=== PATIENT | female | born 1990 | race American Indian/Alaskan Native ===

== ENCOUNTER 2019-04-03 18:50 | Inpatient (IN) | payer OTHER ==
--- NOTE | 2019-04-03 19:08 | Emergency Department Report ---
Blank Doc - Documentation Documentation: 28-year-old female that presents with chest pain and sob. Stated was diagnosed with DVT to left leg this morning in [facility]. This initial assessment/diagnostic orders/clinical plan/treatment(s) is/are subject to change based on patient's health status, clinical progression and re- assessment by fellow clinical providers in the ED. Further treatment and workup at subsequent clinical providers discretion. Patient/guardians urged not to elope from the ED as their condition may be serious if not clinically assessed and managed. Initial orders include: 1- Patient sent to MAIN ED for further evaluation and treatment 2- labs 3- CTA 4- UA
[2019-04-03 20:11] LABS: Basophils # (Auto) 0.1 K/mm3 (0.0-0.1); Basophils % (Auto) 1.6 % (0.0-1.8); Eosinophils # (Auto) 0.3 K/mm3 (0.0-0.4); Eosinophils % (Auto) 3.8 % (0.0-4.3); Hematocrit 38.8 % (30.3-42.9); Hemoglobin 12.9 gm/dl (10.1-14.3); Lymphocytes # (Auto) 3.1 K/mm3 (1.2-5.4); Lymphocytes % (Auto) 43.3 % (13.4-35.0); Mean Corpuscular HGB Conc 33 % (30-34); Mean Corpuscular Volume 80 fl (79-97); Monocytes # (Auto) 0.4 K/mm3 (0.0-0.8); Monocytes % (Auto) 6.2 % (0.0-7.3); Platelet Count 416 K/mm3 (140-440); Red Blood Count 4.84 M/mm3 (3.65-5.03); Red Cell Distribution Width 14.5 % (13.2-15.2)
[2019-04-03 20:24] LABS: INR 1.36 (0.87-1.13)
[2019-04-03 20:25] LABS: Partial Thromboplastin Time 36.1 Sec. (24.2-36.6)
[2019-04-03 20:35] LABS: Alanine Aminotransferase 13 units/L (7-56); Albumin 3.9 g/dL (3.9-5); BUN/Creatinine Ratio 14; Blood Urea Nitrogen 7 mg/dL (7-17); Calcium 8.6 mg/dL (8.4-10.2); Hemolysis Index 9
--- NOTE | 2019-04-03 20:53 | XRay Report ---
CHEST 2 VIEWS INDICATION / CLINICAL INFORMATION: Chest Pain. COMPARISON: None available. FINDINGS: SUPPORT DEVICES: None. HEART / MEDIASTINUM: No significant abnormality. LUNGS / PLEURA: No significant pulmonary or pleural abnormality. .No pneumothorax. ADDITIONAL FINDINGS: No significant additional findings. IMPRESSION: 1. No acute findings. Signer Name: Marito Sevilla MD Signed: 04/03/2019 8:49 PM Workstation Name: [id number]
--- NOTE | 2019-04-03 21:13 | Emergency Department Report ---
<MADELYN COVARRUBIAS - Last Filed: 04/04/19 00:39> ED Chest Pain HPI - General Chief Complaint: Chest Pain Stated Complaint: BLOOD CLOT/CHEST PAIN Time Seen by Provider: 04/03/19 19:05 Source: patient Mode of arrival: Ambulatory Limitations: No Limitations - History of Present Illness Initial Comments: Patient 28-year-old -Bul[place] female who presents for chest pain shortness of breath Diagnosed with DVT left calf earlier today started on xarelto at [facility] chest pain shortness of breath started about 1630 today since this facility was Then [facility] Start Facility so She Came Here patient has had 1 dose of Xarelto today there is no leg pain pain no wheezing or stridor no shortness of breath at this time MD Complaint: chest pain Onset/Timin -: Sudden Onset: during rest Pain Location: right chest Pain Radiation: none Severity: moderate Severity scale (0 -10): 5 Quality: sharp Consistency: constant Improves With: nothing Worsens With: exertion, inspiration, palpation, movement Context: other (dx with DVT ) re: nausea. denies: vomting, diaphoresis, dyspnea, sense of impending doom Other Symptoms: denies: cough, fever, syncope, rash, acid taste in mouth, leg swelling, palpitations, burping Treatments Prior to Arrival: none - Related Data On Oral Contraceptives: No Home Medications Medication Instructions Recorded Confirmed Last Taken No Known Home Medications [No 04/03/19 04/03/19 Unknown Reported Home Medications] Allergies Allergy/AdvReac Type Severity Reaction Status Date / Time No Known Allergies Allergy Unverified 04/03/19 19:09 Heart Score - HEART Score History: Slightly suspicious EKG: Normal Age: < 45 Risk factors: No known risk factors Troponin: < normal limit HEART Score: 0 ED Review of Systems Constitutional: denies: chills, fever Eyes: denies: eye pain, eye discharge, vision change ENT: denies: ear pain, throat pain Respiratory: shortness of breath. denies: cough, wheezing Cardiovascular: chest pain. denies: palpitations, dyspnea on exertion, edema, syncope, paroxysmal nocturnal dyspnea Endocrine: no symptoms reported Gastrointestinal: denies: abdominal pain, nausea, diarrhea Genitourinary: denies: urgency, dysuria, discharge Musculoskeletal: denies: back pain, joint swelling, arthralgia Skin: denies: rash, lesions Neurological: denies: headache, weakness, paresthesias Psychiatric: denies: anxiety, depression Hematological/Lymphatic: denies: easy bleeding, easy bruising ED Past Medical Hx - Past Medical History Previous Medical History?: Yes Additional medical history: dx L DVT dx today at [place]. - Surgical History Past Surgical History?: Yes Additional Surgical History: Pins in l arm - Social History Smoking Status: Current Every Day Smoker Substance Use Type: None - Medications Home Medications: Home Medications Medication Instructions Recorded Confirmed Last Taken Type No Known Home Medications [No 04/03/19 04/03/19 Unknown History Reported Home Medications] ED Physical Exam - General Limitations: No Limitations General appearance: alert, in no apparent distress - Head Head exam: Present: atraumatic, normocephalic - Eye Eye exam: Present: normal appearance. Absent: PERRL, EOMI, conjunctival injection, nystagmus Pupils: Absent: normal accommodation - ENT ENT exam: Present: normal orophraynx, mucous membranes moist, TM's normal bilaterally, normal external ear exam - Neck Neck exam: Present: normal inspection, full ROM. Absent: tenderness, lymphadenopathy, thyromegaly - Respiratory Respiratory exam: Present: normal lung sounds bilaterally, chest wall tenderness (right anterior chest ). Absent: respiratory distress, wheezes, rales, rhonchi, stridor, prolonged expiratory - Cardiovascular Cardiovascular Exam: Present: regular rate, normal rhythm, normal heart sounds. Absent: systolic murmur, diastolic murmur, rubs, gallop - GI/Abdominal GI/Abdominal exam: Present: soft, normal bowel sounds. Absent: distended, ten derness, guarding, rebound, rigid, bruit, hernia - Rectal Rectal exam: Present: deferred - Extremities Exam Extremities exam: Present: tenderness (left post calf ), normal capillary refill, calf tenderness. Absent: pedal edema, joint swelling - Expanded Lower Extremity Exam Left Lower Leg exam: Present: full ROM, tenderness, Susie's sign. Absent: swelling, abrasion, laceration, ecchymosis, deformity, crepidus, dislocation, erythema, palpable cord Ankle exam: Present: full ROM. Absent: tenderness Foot/Toe exam: Absent: full ROM, tenderness, swelling Neuro vascular tendon exam: Absent: pulse deficit, abnormal cap refill, motor deficit, sensory deficit, tendon deficit, extremity cold to touch Gait: Positive: observed and normal - Back Exam Back exam: Present: normal inspection, full ROM. Absent: tenderness, CVA ten derness (R), CVA tenderness (L), muscle spasm, rash noted - Neurological Exam Neurological exam: Present: alert, oriented X3, CN II-XII intact, normal gait, motor sensory deficit. Absent: reflexes normal - Psychiatric Psychiatric exam: Present: normal affect, normal mood - Skin Skin exam: Present: warm, dry, intact, normal color. Absent: rash GABE score - Gabe Score Age > 65: (0) No Aspirin use within the Past 7 Days: (0) No 3 or more CAD Risk Factors: (0) No 2 or more Angina events in past 24 hrs: (0) No Known CAD with more than 50% Stenosis: (0) No Elevated Cardiac Markers: (0) No ST Deviation Greater than 0.5mm: (0) No GABE Score: 0 ED Medical Decision Making - Lab Data Result diagrams: 04/03/19 19:53 04/03/19 19:53 Labs 04/03/19 04/03/19 04/03/19 19:53 19:53 19:53 WBC 7.1 RBC 4.84 Hgb 12.9 Hct 38.8 MCV 80 MCH 27 L MCHC 33 RDW 14.5 Plt Count 416 Lymph % (Auto) 43.3 H [place] % (Auto) 6.2 Eos % (Auto) 3.8 Baso % (Auto) 1.6 Lymph # 3.1 [place] # 0.4 Eos # 0.3 Baso # 0.1 Seg Neutrophils % 45.1 Seg Neutrophils # 3.2 PT 16.4 H INR 1.36 H APTT 36.1 Sodium 141 Potassium 3.0 L Chloride 103.3 Carbon Dioxide 26 Anion Gap 15 BUN 7 Creatinine 0.5 L Estimated GFR > 60 BUN/Creatinine Ratio 14 Glucose 99 Calcium 8.6 Total Bilirubin 0.40 AST 18 ALT 13 Alkaline Phosphatase 58 Troponin T < 0.010 Total Protein 7.8 Albumin 3.9 Albumin/Globulin Ratio 1.0 HCG, Qual 04/03/19 04/03/19 19:53 22:03 WBC RBC Hgb Hct MCV MCH MCHC RDW Plt Count Lymph % (Auto) [place] % (Auto) Eos % (Auto) Baso % (Auto) Lymph # [place] # Eos # Baso # Seg Neutrophils % Seg Neutrophils # PT INR APTT Sodium Potassium Chloride Carbon Dioxide Anion Gap BUN Creatinine Estimated GFR BUN/Creatinine Ratio Glucose Calcium Total Bilirubin AST ALT Alkaline Phosphatase Troponin T < 0.010 Total Protein Albumin Albumin/Globulin Ratio HCG, Qual Negative - Radiology Data Radiology results: report reviewed, image reviewed CTA: Pos of PE multiple fill defects both lungs, CXR: No Acute findings. - Medical Decision Making Chest x-ray negative CTA positive for bilateral PE multiple filling defects. Lungs Consulted ED attending plan admit to hospitalist diagnoses bilateral pulmonary embolus, discussed treatment plan with patient patient verbalized agreement and understanding with treatment plan limited to hospitals at this time Call hospitalist Dr. Graves patient had report patient will be admitted to [facility] with diagnoses bilateral PE recommendation P protocol discussed treatment plan with patient patient verbalizes agreement and understand the treatment plan will be admitted to hospitalist at this time hospitalist will see patient awaiting bed assignment patient resting quietly with no acute distress pain is 2/10 at this time management per patient ED Disposition Clinical Impression: Bilateral pulmonary embolism Disposition: OP ADMIT IP TO THIS HOSP Is pt being admited?: Yes Does the pt Need Aspirin: No Condition: Fair <SOFY GARCIA - Last Filed: 04/04/19 14:16> ED Review of Systems ROS: Stated complaint: BLOOD CLOT/CHEST PAIN Other details as noted in HPI ED Course Vital Signs 04/03/19 04/03/19 04/03/19 18:56 21:12 23:00 Temperature 99.3 F 98.6 F Pulse Rate 75 62 68 Respiratory 16 18 18 Rate Blood Pressure 133/90 Blood Pressure 105/73 100/60 [Right] O2 Sat by Pulse 100 100 100 Oximetry 04/04/19 04/04/19 04/04/19 01:18 01:30 01:45 Temperature Pulse Rate 64 64 Respiratory 17 Rate Blood Pressure 100/54 Blood Pressure [Right] O2 Sat by Pulse 100 100 100 Oximetry 04/04/19 04/04/19 04/04/19 02:31 02:45 03:00 Temperature Pulse Rate 63 64 64 Respiratory 12 16 13 Rate Blood Pressure 109/78 109/78 112/80 Blood Pressure [Right] O2 Sat by Pulse 100 100 100 Oximetry 04/04/19 04/04/19 04/04/19 03:31 03:41 03:51 Temperature Pulse Rate 60 60 60 Respiratory 13 14 15 Rate Blood Pressure 112/80 112/80 112/80 Blood Pressure [Right] O2 Sat by Pulse 100 100 100 Oximetry ED Medical Decision Making - Lab Data Result diagrams: 04/04/19 00:57 04/03/19 19:53 Critical Care Time: Yes Critical care time in (mins) excluding proc time.: 45 Critical care attestation.: If time is entered above; I have spent that time in minutes in the direct care of this critically ill patient, excluding procedure time.
--- NOTE | 2019-04-03 23:11 | Cat Scan Report ---
CTA CHEST WITH IV CONTRAST INDICATION / CLINICAL INFORMATION: chest pain w sob. TECHNIQUE: Axial CT images were obtained through the chest after injection of 100 mL Omnipaque 350 IV contrast. 3 plane MIP and/or 3D reconstructions were produced. All CT scans at this location are performed usin g CT dose reduction for YENNYRA by means of automated exposure control. COMPARISON: Chest radiograph same day FINDINGS: PULMONARY ARTERIES: There are multiple subsegmental filling defects seen throughout both lungs compat ible with pulmonary thromboembolus. The main pulmonary artery is nondilated, measuring up to 2.2 cm. There is no CT evidence of right heart strain. THORACIC AORTA: No significant abnormality. HEART: No significant abnormality. CORONARY ARTERIES: No significant calcification. PLEURA: No pleural effusion. No pneumothorax. LYMPH NODES: No significant adenopathy. LUNGS: No acute air space or interstitial disease. ADDITIONAL FINDINGS: None. UPPER ABDOMEN: No acute findings. SKELETAL STRUCTURES: No significant osseous abnormality. IMPRESSION: 1. The examination is positive for pulmonary embolus with multiple subsegmental filling defects seen throughout both lungs. The above findings were discussed with Quintin Hanley NP, at 10:06 PM central time on 04/03/2019. Signer Name: Dominique Coulter MD Signed: 04/03/2019 11:07 PM Workstation Name: [id number]
[2019-04-04] MEDS ORDERED: HEPARIN 10,000 UNITS/10 ML VIAL IV ONE (00:45)
[2019-04-04 01:09] LABS: Hematocrit 36.1 % (30.3-42.9); Hemoglobin 12.1 gm/dl (10.1-14.3)
[2019-04-04 01:20] LABS: INR 1.28 (0.87-1.13)
[2019-04-04 01:21] LABS: Partial Thromboplastin Time 34.9 Sec. (24.2-36.6)
[2019-04-04] MEDS: HEPARIN/ 0.45% NACL DRIP 25,000 UNIT/500 ML BAG IV SCH (01:40)
[2019-04-04] MEDS ORDERED: ONDANSETRON 4 MG/2 ML INJ IV PRN (02:00)
[2019-04-04] MEDS ORDERED: ACETAMINOPHEN 325 MG TAB PO PRN (02:01)
[2019-04-04] MEDS: POTASSIUM CHLORIDE 10 MEQ 10 MEQ/100 ML BAG IV SCH ×2 (02:22→05:29)
[2019-04-04 02:30] LABS: INR 1.43 (0.87-1.13)
[2019-04-04] MEDS ORDERED: POTASSIUM CHLORIDE ER 20 MEQ TAB PO ONE (02:30)
--- NOTE | 2019-04-04 02:38 | History and Physical Report ---
CHIEF COMPLAINT: Chest pain. HISTORY OF PRESENTING ILLNESS: The patient is a 28-year-old female who says she has been having chest pain going on for about 1 week and yesterday, 04/03/2019, the patient developed pain in the left lower extremity and went to [facility] where she was diagnosed with deep vein thrombosis of the left lower extremity and was given a prescription for Xarelto. The patient states she took just one dose of the Xarelto yesterday prior to coming to the hospital, but started having more chest pain and did not feel okay and decided to come to this hospital. There is no history of dizziness. No history of fever, nausea or vomiting. The patient also said she has some symptoms of shortness of breath. The patient had a CT angiogram of the chest done that shows bilateral PE and subsequently presented for admission. PAST MEDICAL HISTORY: Unremarkable. PAST SURGICAL HISTORY: Pertinent for placement of pins in the left arm. FAMILY HISTORY: Noncontributory. SOCIAL HISTORY: The patient smokes cigarette, does not drink alcohol and does not use illicit drug. MEDICATIONS: The patient is on Xarelto. ALLERGIES: There are no known drug allergies. REVIEW OF SYSTEMS: CONSTITUTIONAL: There is no fever, no chills, no diaphoresis. HEENT: There is no headache or sore throat. CARDIOVASCULAR SYSTEM: There is chest pain, but no orthopnea. RESPIRATORY SYSTEM: There is shortness of breath and no cough. GASTROINTESTINAL SYSTEM: There is no nausea, no vomiting, no abdominal pain, diarrhea or constipation. NEUROLOGICAL SYSTEM: There is no numbness, no dizziness, no altered mental status. MUSCULOSKELETAL SYSTEM: There is pain in the left lower extremity with no joint swelling. DERMATOLOGICAL SYSTEM: There is no skin rash or itching. GENITOURINARY SYSTEM: There is no dysuria, hematuria, or flank pain. Rest of system review is normal. PHYSICAL EXAMINATION: GENERAL: At the time of exam, the patient was found to be alert, oriented x 3 and not in acute distress. VITAL SIGNS: Show temperature of 99.3 degrees Fahrenheit, pulse of 75, respirations 16, blood pressure 133/90, O2 sat of 100% on room air. HEENT: Showed pupils to be equal, round, reactive to light and accommodating. Extraocular muscles are intact. NECK: Supple with no JVD or carotid bruit. CARDIOVASCULAR SYSTEM: Showed normal first and second heart sounds with no gallops or murmurs. RESPIRATORY SYSTEM: Showed good air entry on both sides of the lungs with no abnormal breath sounds. GASTROINTESTINAL SYSTEM: Showed abdomen to be full, soft, nontender with no organomegaly or rigidity. NEUROLOGIC: Shows no focal deficit. MUSCULOSKELETAL SYSTEM: Showed no joint swelling or tenderness. DERMATOLOGICAL SYSTEM: Showing no skin rash. GENITOURINARY SYSTEM: Showed no costovertebral angle tenderness. PERTINENT LABORATORY AND IMAGING STUDIES: The patient had chest x-ray done that shows no acute findings. Also, the patient had CT angiogram of the chest done that shows multiple subsegmental filling defects seen throughout both lungs and is positive for pulmonary embolism. Lab results, the patient had CBC done that shows normal white count, normal hemoglobin and normal hematocrit with CBC differential showing elevated lymphocyte count of 43.3%. The patient's coagulation study shows slightly elevated PT of 16.4 and slightly elevated INR of 1.36. The patient's chemistry showed low potassium level of 3.0 with rest of chemistry being unremarkable. Serum test came back negative and serum troponin level was normal. DIAGNOSES: 1. Bilateral pulmonary embolism. 2. Hypokalemia. PLAN OF CARE: 1. The patient will be admitted to telemetry. 2. The patient will continue IV heparin started in the Emergency Room. 3. The patient will have pharmacy to start and dose Coumadin treatment. 4. The patient will have PT, INR done every day for 3 days in the morning. 5. The patient will be on IV morphine 2 mg every 4 hours as needed for pain and will also be on IV Zofran 4 mg every 8 hours for nausea and vomiting. 6. The patient will have potassium chloride 40 mEq by mouth one time and will be on potassium chloride 10 mEq through the IV route mixed in 100 mL of normal saline given over 1 hour x 2 doses. 7. The patient will be on Tylenol 650 mg by mouth every 4 hours for fever and headache. 8. The patient's diet will be regular diet. JOB# [id number] OCN/NTS
[2019-04-04] MEDS ORDERED: SODIUM CHLORIDE 0.9% 1000 ML 1,000 ML ONE (02:47)
[2019-04-04] MEDS: MORPHINE 2 MG/1 ML INJ IV PRN ×3 (02:52→21:45)
[2019-04-04] MEDS ORDERED: SODIUM CHLORIDE 0.9% 1000 ML 1,000 ML IV ONE (02:53)
--- NOTE | 2019-04-04 13:57 | Event Note ---
Date: 04/04/19 Patient admitted earlier this morning for the management of DVT, PE. Patient was seen at [place] the day before yesterday and diagnosed with DVT and sent home with Xarelto. Next day patient become short of breath and presented to the emergency department, CT was done and positive for bilateral PE. Patient only took a dose of Xarelto. Patient was hemodynamically stable, blood pressure is good, no shortness of breath and on dizziness. Patient's currently on heparin.
[2019-04-04] MEDS ORDERED: WARFARIN 7.5 MG TAB PO SCH (17:00)
[2019-04-05] MEDS: HEPARIN/ 0.45% NACL DRIP 25,000 UNIT/500 ML BAG IV SCH ×2 (03:10→23:48)
[2019-04-05 06:03] LABS: INR 1.17 (0.87-1.13)
[2019-04-05] MEDS: MORPHINE 2 MG/1 ML INJ IV PRN ×3 (07:01→20:45)
[2019-04-05] MEDS ORDERED: POTASSIUM CHLORIDE ER 20 MEQ TAB PO NR (10:27)
--- NOTE | 2019-04-05 10:35 | Progress Note ---
Assessment and Plan Assessment and plan: 28 y/o female was presented to ED with complaints of SOB. Patient was diagnosed with DVT at [place] and discharged with xarelto. She took only one dose of xarelto. In the ED CTA showed bilateral PE Bilateral PE - has SOB on admission, now resolved - Earlier this morning was low, but normalized after that - Echo ordered - I put IR consult - patient is on heparin drip - Once cleared by IR, patient can be discharged with xarelto. Patient took only a dose of xarelto and i don't think it is treatment failure. Disposition - Pending IR evaluation History Interval history: Patient was seen and evaluated this morning Patient has no SOB No dizziness Hospitalist Physical - Physical exam Narrative exam: Not in cardiopulmonary distress. The patient is obese. Vital signs as documented. Head exam is unremarkable. No scleral icterus . Neck is without jugular venous distension, thyromegaly, or carotid bruits. Lungs are clear to auscultation. Cardiac exam reveals regular rate and Rhythm. Abdominal exam reveals normal bowel sounds. Extremities are nonedematous and both femoral and pedal pulses are normal. 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 No focal weakness. - Constitutional Vitals: Temp Pulse Resp BP Pulse Ox 98.4 F 68 18 114/56 67 L 04/05/19 07:49 04/05/19 08:58 04/05/19 07:49 04/05/19 07:49 04/05/19 07:49 Results - Labs CBC & Chem 7: 04/04/19 00:57 04/03/19 19:53 Labs: Laboratory Last Values WBC 7.1 K/mm3 (4.5-11.0) 04/03/19 19:53 RBC 4.84 M/mm3 (3.65-5.03) 04/03/19 19:53 Hgb 12.1 gm/dl (10.1-14.3) 04/04/19 00:57 Hct 36.1 % (30.3-42.9) 04/04/19 00:57 MCV 80 fl (79-97) 04/03/19 19:53 MCH 27 pg (28-32) L 04/03/19 19:53 MCHC 33 % (30-34) 04/03/19 19:53 RDW 14.5 % (13.2-15.2) 04/03/19 19:53 Plt Count 361 K/mm3 (140-440) 04/04/19 00:57 Lymph % (Auto) 43.3 % (13.4-35.0) H 04/03/19 19:53 [place] % (Auto) 6.2 % (0.0-7.3) 04/03/19 19:53 Eos % (Auto) 3.8 % (0.0-4.3) 04/03/19 19:53 Baso % (Auto) 1.6 % (0.0-1.8) 04/03/19 19:53 Lymph # 3.1 K/mm3 (1.2-5.4) 04/03/19 19:53 [place] # 0.4 K/mm3 (0.0-0.8) 04/03/19 19:53 Eos # 0.3 K/mm3 (0.0-0.4) 04/03/19 19:53 Baso # 0.1 K/mm3 (0.0-0.1) 04/03/19 19:53 Seg Neutrophils % 45.1 % (40.0-70.0) 04/03/19 19:53 Seg Neutrophils # 3.2 K/mm3 (1.8-7.7) 04/03/19 19:53 PT 14.6 Sec. (12.2-14.9) 04/05/19 04:43 INR 1.17 (0.87-1.13) H 04/05/19 04:43 APTT 34.9 Sec. (24.2-36.6) 04/04/19 00:57 Heparin Anti-Xa Level 0.77 U.I./ml (0.3-0.7) H 04/05/19 08:53 Sodium 141 mmol/L (137-145) 04/03/19 19:53 Potassium 3.0 mmol/L (3.6-5.0) L 04/03/19 19:53 Chloride 103.3 mmol/L (98-107) 04/03/19 19:53 Carbon Dioxide 26 mmol/L (22-30) 04/03/19 19:53 Anion Gap 15 mmol/L 04/03/19 19:53 BUN 7 mg/dL (7-17) 04/03/19 19:53 Creatinine 0.5 mg/dL (0.7-1.2) L 04/03/19 19:53 Estimated GFR > 60 ml/min 04/03/19 19:53 BUN/Creatinine Ratio 14 % 04/03/19 19:53 Glucose 99 mg/dL (65-100) 04/03/19 19:53 Calcium 8.6 mg/dL (8.4-10.2) 04/03/19 19:53 Total Bilirubin 0.40 mg/dL (0.1-1.2) 04/03/19 19:53 AST 18 units/L (5-40) 04/03/19 19:53 ALT 13 units/L (7-56) 04/03/19 19:53 Alkaline Phosphatase 58 units/L (35-129) 04/03/19 19:53 Troponin T < 0.010 ng/mL (0.00-0.029) 04/03/19 22:03 Total Protein 7.8 g/dL (6.3-8.2) 04/03/19 19:53 Albumin 3.9 g/dL (3.9-5) 04/03/19 19:53 Albumin/Globulin Ratio 1.0 % 04/03/19 19:53 HCG, Qual Negative (Negative) 04/03/19 19:53 Active Medications - Current Medications Current Medications: Generic Name Dose Route Start Last Admin Trade Name Freq PRN Reason Stop Dose Admin Acetaminophen 650 mg 04/04/19 02:01 Tylenol PO Q4H PRN Fever >101 Heparin Sodium/Sodium Chloride 25,000 unit in 500 mls @ 26 mls/hr 04/04/19 01: 00 04/05/19 03:10 Heparin/ 0.45% Nacl-25,000 Unit/500 Ml IV 1,100 units/hr TITR EN 22 mls/hr Administration Protocol 1,300 UNITS/HR Morphine Sulfate 2 mg 04/04/19 02:00 04/05/19 07:01 Morphine IV 2 mg Q4H PRN Administration Pain, Moderate (4-6) Ondansetron HCl 4 mg 04/04/19 02:00 Zofran IV Q8H PRN Nausea And Vomiting Warfarin Sodium 10 mg 04/05/19 17:00 Coumadin PO DAILY@1700 [facility] Nutrition/Malnutrition Assess - Dietary Evaluation Nutrition/Malnutrition Findings: Nutrition Notes Start: 04/04/19 11:03 Freq: Status: Active Protocol: Document 04/04/19 11:12 (Rec: 04/04/19 11:22 [email or web address] [id number]) Nutrition Notes Need for Assessment generated from: Education Initial or Follow up Brief Note Other Pertinent Diagnosis Pulmonary Embolism Current Diet Regular Labs/Tests Reviewed Pertinent Medications Warfarin Subjective/Other Information Pt screened for warfarin education. Met w/pt to discuss warfarin/Vitamin K interaction. #1 Nutrition Diagnosis Food and nutrition-related knowledge deficit Etiology Pt unaware of interaction between Vitamin K and warfarin . As Evidenced by Signs and Symptoms Pt recently prescribed warfarin. Diagnosis Progress(for reassessment Resolved documentation) Nutrition Intervention Teaching Recipient Patient Learning Readiness Fair Teaching Methods Discussion,Handout Response to Teaching Verbalize understanding Education Handouts Provided Vitamin K/Warfarin handout Barriers to Learning No Barriers RD phone number provided Yes Patient aware of follow up options Yes Anticipated Discharge Needs: Consistent Vitamin K intake. Revisit per MD consult or patient Sign Off request:
[2019-04-05] MEDS: POTASSIUM CHLORIDE ER 20 MEQ TAB PO SCH ×2 (11:32→14:21)
--- NOTE | 2019-04-05 16:52 | Consultation ---
History of Present Illness - Reason for Consult Consult date: 04/05/19 Pulmonary Embolus Requesting physician: DAIVD WASHBURN - History of Present Illness The patient is a 28-year-old female who presented to the emergency department with complaints of chest pain. She states that she began noticing left leg pain approximately 10 days ago but she denied any noticeable swelling. She also denies any trauma or history of previous DVTs. The leg pain was mostly locali zed to her left calf. 1 the leg pain did not resolve she presented to [facility] this past Wednesday and had a venous duplex and was diagnosed with a DVT however they did not tell her the location of the DVT. She states she was started on Xarelto and discharged from the emergency department. She would develop chest pain 1 day prior to her admission here at [facility] and presented to the emergency department. She denies any shortness of breath or any other complaints at this time. Past History Past Medical History: No medical history Past Surgical History: Other (pins left arm) Social history: no significant social history Medications and Allergies Allergies Allergy/AdvReac Type Severity Reaction Status Date / Time No Known Allergies Allergy Unverified 04/03/19 19:09 Home Medications Medication Instructions Recorded Confirmed Last Taken Type No Known Home Medications [No 04/03/19 04/03/19 Unknown History Reported Home Medications] Active Meds: Active Medications Acetaminophen (Tylenol) 650 mg PO Q4H PRN PRN Reason: Fever >101 Heparin Sodium/Sodium Chloride (Heparin/ 0.45% Nacl-25,000 Unit/500 Ml) 25,000 unit in 500 mls @ 26 mls/hr IV [facility]; Protocol Last Admin: 04/05/19 03:10 Dose: 1,100 units/hr, 22 mls/hr Documented by: Morphine Sulfate (Morphine) 2 mg IV Q4H PRN PRN Reason: Pain, Moderate (4-6) Last Admin: 04/05/19 11:32 Dose: 2 mg Documented by: Ondansetron HCl (Zofran) 4 mg IV Q8H PRN PRN Reason: Nausea And Vomiting Warfarin Sodium (Coumadin) 10 mg PO DAILY@1700 EN Last Admin: 04/05/19 16:21 Dose: 10 mg Documented by: Review of Systems All systems: negative Exam - Constitutional Vitals: Temp Pulse Resp BP Pulse Ox 98.4 F 68 18 114/56 67 L 04/05/19 07:49 04/05/19 08:58 04/05/19 07:49 04/05/19 07:49 04/05/19 07:49 General appearance: Present: no acute distress - Neck Neck: Present: supple - Respiratory Respiratory effort: normal, other (no supplemental oxygen) - Cardiovascular Rhythm: regular - Extremities Extremities: no ischemia, No edema Peripheral Pulses: within normal limits - Abdominal General gastrointestinal: Present: soft, non-tender - Rectal Rectal Exam: deferred - Integumentary Integumentary: Present: clear - Musculoskeletal Musculoskeletal: strength equal bilaterally Results - Labs CBC & Chem 7: 04/04/19 00:57 04/03/19 19:53 Labs: Abnormal lab results 04/04/19 04/05/19 04/05/19 Range/Units 16:48 00:46 04:43 INR 1.17 H (0.87-1.13) Heparin Anti-Xa Level 0.21 L 0.79 H (0.3-0.7) U.I./ml 04/05/19 Range/Units 08:53 INR (0.87-1.13) Heparin Anti-Xa Level 0.77 H (0.3-0.7) U.I./ml - Imaging and Cardiology CT scan - chest: image reviewed Assessment and Plan The patient is a 28-year-old female with a history of left lower extremity DVT and bilateral pulmonary emboli. Review of the CTA of her chest reveals that the pulmonary emboli are distal and unlikely causing any right heart strain. She does not have any clinical signs of right heart strain including shortness of breath or hypotension. Additionally she has no significant left leg swelling however I will repeat the left leg duplex to document the DVT. She would not benefit from pulmonary artery thrombolysis. Her pulmonary embolus is not a treatment failure since she had only been on the medication 1 day prior to her being diagnosed with the pulmonary embolus. She did however have an unprovoked DVT and should be worked up for a hypercoagulable state to determine what anticoagulation she is a candidate for and the duration of treatment. If she does not have a hypercoagulable state Xarelto for 6 months is adequate treatment however if she is hypercoagulable lifelong treatment with anticoagulation is the recommendation.
[2019-04-05] MEDS ORDERED: WARFARIN 10 MG TAB PO SCH (17:00)
[2019-04-06 05:19] LABS: Hematocrit 36.8 % (30.3-42.9); Hemoglobin 12.1 gm/dl (10.1-14.3)
[2019-04-06 05:47] LABS: INR 1.12 (0.87-1.13)
[2019-04-06] MEDS: MORPHINE 2 MG/1 ML INJ IV PRN (09:27)
--- NOTE | 2019-04-06 09:49 | Discharge Summary ---
Providers - Providers Date of Admission: 04/04/19 01:55 Attending physician: DAVID WASHBURN MD 04/05/19 07:18 Consult to Physician [CONS] Routine Comment: Consulting Provider: CHELY DELGADO Physician Instructions: Reason For Exam: PE, marginally low BP, mild SOB Primary care physician: REYES UNDERWOOD MD Hospitalization Reason for admission: bilateral PE, left posterior tibial and peroneal DVT Condition: Stable Pertinent studies: CTA 1. The examination is positive for pulmonary embolus with multiple subsegmental filling defects seen throughout both lungs. Venous doppler Positive for DVT in the left posterior tibial vein and peroneal vein Hospital course: 28-year-old -[place] female was presented to the emergency department with complaints of shortness of breath. Patient was diagnosed with D[place] at [facility] [place] [facility] [place] and was given a dose xarelto and was discharged home with pres cription. Patient didn't fill the prescription and presented to the emergency department with shortness of breath and CTA showed bilateral PE, Doppler ultrasound showed left lower extremity DVT patient was started with heparin drip. Her blood pressure was marginally low and she has mild shortness of breath and I have consulted interventional radiology for a need of intervention and said she doesn't need any intervention. Patient only got one dose of Xarelto so is not a treatment failure and I gave her a prescription for Xarelto and I have counseled her extensively about the need to be on the medication and then is to have follow-up with primary care physician, patient agreed with the treatment plan and said she was compliant with the medication. I have also called her grandmother and discussed the management plan. Patient's shortness of breath resolved, blood pressure is okay and patient discharged home today. Disposition: - TO HOME OR SELFCARE Time spent for discharge: 32 minutes - Discharge Diagnoses (1) DVT (deep venous thrombosis) Status: Acute Qualifiers: DVT location: lower extremity Affected thrombotic vein of extremity: peroneal (2) Bilateral pulmonary embolism Status: Acute (3) Obesity (BMI 30.0-34.9) Status: Acute Core Measure Documentation - Palliative Care Palliative Care/ Comfort Measures: Not Applicable - Core Measures Any of the following diagnoses?: DVT/PE - VTE Discharge Requirements Deep Vein Thrombosis/Pulmonary Embolism Present on Admission: Yes Has pt received <5 days of overlap therapy or INR<2.0: Yes Anticoagulant overlap therapy prescribed at discharge: No Contraindication No Overlap Therapy order at DC: Not Indicated Exam - Physical Exam Narrative exam: Not in cardiopulmonary distress. The patient is obese. Vital signs as documented. Head exam is unremarkable. No scleral icterus . Neck is without jugular venous distension, thyromegaly, or carotid bruits. Lungs are clear to auscultation. Cardiac exam reveals regular rate and Rhythm. Abdominal exam reveals normal bowel sounds. Extremities are nonedematous and both femoral and pedal pulses are normal. STONE FABRICATOR: Alert and oriented 3. No focal weakness. - Constitutional Vitals: Temp Pulse Resp BP Pulse Ox 97.9 F 75 18 104/62 100 04/06/19 03:49 04/06/19 03:48 04/06/19 03:48 04/06/19 03:48 04/06/19 03:48 Plan Activity: no restrictions Weight Bearing Status: Full Weight Bearing Diet: regular Follow up with: TYLER CH MD [Referring] - 3-5 Days TRISTEN GARCIA MD [Staff Physician] - 14 Days Forms: Warfarin Discharge Instruction Prescriptions: Rivaroxaban [Xarelto] 15 mg PO BIDDIAB #13 tablet Rivaroxaban [Xarelto] 20 mg PO QDAY #30 tab
[2019-04-06 10:48] LABS: BUN/Creatinine Ratio 10; Blood Urea Nitrogen 6 mg/dL (7-17); Hemolysis Index 9
--- NOTE | 2019-04-06 11:12 | Vascular Lab Report ---
DUPLEX DOPPLER LOWER EXTREMITY VEINS, BILATERAL INDICATION: Patient has bilateral pulmonary emboli, evaluate for DVT. TECHNIQUE: Duplex doppler imaging was performed through the veins of both lower extremities using ve nous compression and other maneuvers. COMPARISON: No relevant prior imaging study available. FINDINGS: Right Common femoral vein: Negative. Right Superficial femoral vein: Negative. Right Popliteal vein: Negative. Right Calf veins: Negative. Left Common femoral vein: Negative. Left Superficial femoral vein: Negative. Left Popliteal vein: Negative. Left Calf veins: Positive for thrombosis in the posterior tibial vein and peroneal vein. Additional findings: None.. IMPRESSION: Positive for DVT in the left posterior tibial vein and peroneal vein Signer Name: Saulo Levine Jr, MD Signed: 04/06/2019 11:08 AM Workstation Name: [id number]
[2019-04-06 11:40] VITALS: BP 110/65
[2019-04-06] MEDS ORDERED: RIVAROXABAN 15 MG TAB PO SCH ×2 (12:00→17:00)
== END 2019-04-06 16:20 | disposition home or self-care (01) | DRG 176 ==
LOC: ED 18:50 → 4A 04-04 01:55
PROVIDERS: ADMIT Internal Medicine; ATTEND Internal Medicine
DX: I26.99 Other pulmonary embolism without acute cor pulmonale (principal); I82.442 Acute embolism and thrombosis of left tibial vein; I82.452 Acute embolism and thrombosis of left peroneal vein; E87.6 Hypokalemia; F17.210 Nicotine dependence, cigarettes, uncomplicated; E66.9 Obesity, unspecified; Z68.33 Body mass index [BMI] 33.0-33.9, adult
CPT/HCPCS: 36415; 71046; 71275; 80048; 80053; 84484; 84703; 85014; 85018; 85025; 85049; 85520; 85610; 85730; 93005; 93010; 93306; 93970; 96365; 96375; 99406; G0378; J1644; J2270; J3480; J7030; Q9967

== ENCOUNTER 2021-12-06 06:28 | Emergency (ER) | payer MEDICAID, OTHER ==
[2021-12-06 06:41] VITALS: BP 133/92
== END 2021-12-06 15:41 | disposition left against medical advice (07) ==
LOC: ED 06:28
DX: R07.9 Chest pain, unspecified (principal); R68.89 Other general symptoms and signs; R49.1 Aphonia; Z53.21 Procedure and treatment not carried out due to patient leaving prior to being seen by health care provider